=== PATIENT | female | born 2000 | race American Indian/Alaskan Native ===

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

== ENCOUNTER 2022-01-13 21:59 | Emergency (ER) | payer MEDICAID ==
[2022-01-14 00:51] VITALS: BP 136/75
[2022-01-14 03:10] LABS: Basophils # (Auto) 0.1 K/mm3 (0.0-0.1); Basophils % (Auto) 0.7 % (0.0-1.8); Eosinophils # (Auto) 0.4 K/mm3 (0.0-0.4); Eosinophils % (Auto) 4.3 % (0.0-4.3); Hematocrit 43.6 % (30.3-42.9); Hemoglobin 14.3 gm/dl (10.1-14.3); Lymphocytes # (Auto) 2.7 K/mm3 (1.2-5.4); Lymphocytes % (Auto) 31.6 % (13.4-35.0); Mean Corpuscular HGB Conc 33 % (30-34); Mean Corpuscular Volume 84 fl (79-97); Monocytes # (Auto) 0.5 K/mm3 (0.0-0.8); Monocytes % (Auto) 5.9 % (0.0-7.3); Platelet Count 481 K/mm3 (140-440); Red Blood Count 5.18 M/mm3 (3.65-5.03); Red Cell Distribution Width 12.9 % (13.2-15.2)
[2022-01-14 03:30] LABS: Alanine Aminotransferase 14 units/L (7-56); Albumin 4.6 g/dL (3.9-5); Blood Urea Nitrogen 7 mg/dL (7-17); Calcium 9.5 mg/dL (8.4-10.2); Hemolysis Index 17
[2022-01-14 03:34] LABS: BUN/Creatinine Ratio 10
[2022-01-14 04:44] LABS: Bilirubin,Urine NEG (Negative); Blood,Urine NEG (Negative); Color,Urine Yellow (Yellow); Protein,Urine <15 mg/dL mg/dL (Negative); Urobilinogen,Urine < 2.0 mg/dL (<2.0)
--- NOTE | 2022-01-14 05:35 | Emergency Department Report ---
ED Abdominal Pain HPI - General Chief Complaint: Abdominal Pain Stated Complaint: STOMACH PAIN Source: patient Mode of arrival: Ambulatory Limitations: No Limitations - History of Present Illness Initial Comments: Patient is a nulliparous 21-year-old -[place] female with past medical history of asthma who presents to the ED with complaint of persistent diffuse intermittent abdominal pain that radiates from the epigastric area to the lower abdomen intermittently for the last 5 months, worse in the last 1 week. Patient states that the pain is usually worse with food but occasionally the pain has been persistent even without food. Patient also complains that in the last 2 days she has been having persistent nausea with abdominal pain. Patient however states that by the time she came to the ED the abdominal pain resolved but wanted to be evaluated anyway. Patient denies dizziness, syncope, vomiting, diarrhea, dysuria, urinary frequency and urgency, vaginal bleeding, vaginal discharge, dyspareunia, low back pain, chest pain, shortness of breath, fever, chills, cough or headache. MD Complaint: abdominal pain (Diffuse) -: Gradual, month(s) (5) Location: diffuse Radiation: none Migration to: no migration Severity scale (0 -10): 3 Quality: aching Consistency: intermittent Improves With: nothing Worsens With: nothing Associated Symptoms: denies other symptoms, nausea, anorexia. denies: vomiting, diarrhea, fever, chills, constipation, dysuria, hematemesis, hematochezia, melena, hematuria, syncope - Related Data LMP Date: 12/31/21 Previous Rx's Medication Instructions Recorded Last Taken Type Ondansetron [Zofran Odt] 4 mg PO Q8HR PRN #20 tab.rapdis 08/30/21 Unknown Rx Dicyclomine [Bentyl] 20 mg PO QID PRN #20 tablet 01/14/22 Unknown Rx Sulfamethoxazole/Trimethoprim 1 each PO Q12H #20 tab 01/14/22 Unknown Rx [Bactrim DS TAB] Allergies Allergy/AdvReac Type Severity Reaction Status Date / Time peanut Allergy Rash Verified 01/14/22 00:39 seafood Allergy Swelling Uncoded 01/14/22 00:39 ED Review of Systems ROS: Stated complaint: STOMACH PAIN Other details as noted in HPI Constitutional: denies: chills, fever Eyes: denies: eye pain, eye discharge, vision change ENT: denies: ear pain, throat pain Respiratory: denies: cough, shortness of breath, wheezing Cardiovascular: denies: chest pain, palpitations Endocrine: no symptoms reported Gastrointestinal: abdominal pain (Diffuse), nausea. denies: vomiting, diarrhea Genitourinary: denies: urgency, dysuria, discharge Musculoskeletal: denies: back pain, joint swelling, arthralgia Skin: denies: rash, lesions Neurological: denies: headache, weakness, paresthesias Psychiatric: denies: anxiety, depression Hematological/Lymphatic: denies: easy bleeding, easy bruising ED Past Medical Hx - Past Medical History Previous Medical History?: Yes Hx Asthma: Yes - Surgical History Past Surgical History?: No - Medications Home Medications: Home Medications Medication Instructions Recorded Confirmed Last Taken Type Ondansetron [Zofran Odt] 4 mg PO Q8HR PRN #20 tab.rapdis 08/30/21 Unknown Rx Dicyclomine [Bentyl] 20 mg PO QID PRN #20 tablet 01/14/22 Unknown Rx Sulfamethoxazole/Trimethoprim 1 each PO Q12H #20 tab 01/14/22 Unknown Rx [Bactrim DS TAB] ED Physical Exam - General Limitations: No Limitations General appearance: alert, in no apparent distress - Head Head exam: Present: atraumatic, normocephalic, normal inspection - Eye Eye exam: Present: normal appearance, PERRL, EOMI Pupils: Present: normal accommodation - ENT ENT exam: Present: normal exam, normal orophraynx, mucous membranes moist, TM's normal bilaterally, normal external ear exam - Neck Neck exam: Present: normal inspection, full ROM - Respiratory Respiratory exam: Present: normal lung sounds bilaterally. Absent: respiratory distress, wheezes, rales, rhonchi, stridor, chest wall tenderness, accessory muscle use, decreased breath sounds, prolonged expiratory - Cardiovascular Cardiovascular Exam: Present: regular rate, normal rhythm, normal heart sounds. Absent: systolic murmur, diastolic murmur, rubs, gallop - GI/Abdominal GI/Abdominal exam: Present: soft, normal bowel sounds. Absent: tenderness, guarding, rebound, rigid, hyperactive bowel sounds, hypoactive bowel sounds, organomegaly, bruit - Extremities Exam Extremities exam: Present: normal inspection, full ROM, normal capillary refill. Absent: tenderness - Back Exam Back exam: Present: normal inspection, full ROM. Absent: tenderness, CVA tenderness (R), CVA tenderness (L), muscle spasm, paraspinal tenderness, vertebral tenderness - Neurological Exam Neurological exam: Present: alert, oriented X3, CN II-XII intact, normal gait, reflexes normal - Psychiatric Psychiatric exam: Present: normal affect, normal mood - Skin Skin exam: Present: warm, dry, intact, normal color. Absent: rash ED Course Vital Signs 01/14/22 00:37 Temperature 98.4 F Pulse Rate 65 Respiratory 16 Rate Blood Pressure 136/75 [Right] O2 Sat by Pulse 98 Oximetry ED Medical Decision Making - Lab Data Result diagrams: 01/14/22 02:43 01/14/22 02:43 - Medical Decision Making This is a nulliparous 21-year-old -[place] female with past medical history of asthma who presents to the ED with complaint of persistent diffuse intermittent abdominal pain that radiates from the epigastric area to the lower abdomen intermittently for the last 5 months, worse in the last 1 week. Patient states that the pain is usually worse with food but occasionally the pain has been persistent even without food. Patient also complains that in the last 2 days she has been having persistent nausea with abdominal pain. Patient however states that by the time she came to the ED the abdominal pain resolved but wanted to be evaluated anyway. In the ED, patient is alert and oriented x3 and is not in any distress. Lab test results were reviewed and and are all jarred ctionable except for urinary tract infection in urinalysis. Patient however left the ED AGAINST MEDICAL ADVICE prior to all the lab test results being released. Patient signed AMA and left the ED stating that the waiting was stolen. - Differential Diagnosis GERD; constipation; UTI; ovarian cyst; kidney stone; Critical care attestation.: If time is entered above; I have spent that time in minutes in the direct care of this critically ill patient, excluding procedure time. ED Disposition Clinical Impression: Acute urinary tract infection Abdominal pain Qualifiers: Abdominal location: generalized Qualified Code(s): R10.84 - Generalized abdominal pain Disposition: 07 LEFT AGAINST MEDICAL ADVICE Is pt being admited?: No Does the pt Need Aspirin: No Condition: Stable Instructions: Abdominal Pain (ED), Abdominal Pain, Adult, [id number], Urinary Tract Infection, Adult, [id number] Additional Instructions: All lab test results were reviewed and are all nonactionable except for urinalysis that showed significant urinary tract infection. Therefore take medication with food, drink plenty of fluids and follow-up with your primary care physician in 7 to 10 days for reevaluation. Return to the ED immediately if symptoms get worse. Prescriptions: Sulfamethoxazole/Trimethoprim [Bactrim DS TAB] 1 each PO Q12H #20 tab Dicyclomine [Bentyl] 20 mg PO QID PRN #20 tablet PRN Reason: abdominal pain Referrals: JUAN MANUEL ALONSO MD [Primary Care Provider] - 3-5 Days Forms: AMA Form Time of Disposition: 05:35 Print Language: MACEDONIAN
== END 2022-01-14 04:26 | disposition left against medical advice (07) ==
LOC: ED 21:59
DX: N39.0 Urinary tract infection, site not specified (principal); R10.9 Unspecified abdominal pain; Z91.010 Allergy to peanuts; Z91.013 Allergy to seafood; J45.909 Unspecified asthma, uncomplicated
CPT/HCPCS: 36415; 80053; 81001; 84703; 85025; 87086; 99283